=== PATIENT | male | born 1995 | race African-American/Black ===

== ENCOUNTER → 2017-06-09 | Outpatient (CLI) | payer OTHER ==
[~2017-06-09] MED LIST: CATHETER FLUSH 10 ML SYR IV PRN; IOHEXOL 350 MG/ML 100 ML (OMNIPAQUE 350) VIAL IV ONE; NS 100 ML (IVPB) BAG IV ONE
--- NOTE | 2017-06-09 14:15 | Diagnostic Imaging Report ---
PROCEDURE: CT head with and without contrast. TECHNIQUE: Multiple contiguous axial images were obtained through the brain before and after the administration of intravenous contrast. INDICATION: Headache. COMPARISON: There are no prior studies available for comparison. FINDINGS: On the pre intravenous contrast series, there is no mass, shift of the midline, or hemorrhage to suggest an acute abnormality. Following administration of intravenous contrast, there is no abnormal enhancement to indicate a neoplastic or infectious process. The torres martinez of [place], where visualized, is unremarkable for an aneurysm, and there is no hemodynamically significant stenosis of the visualized vascular structures. The ventricles are not abnormally dilated. The bone windows show no sign of a fracture or of a destructive lesion. The orbits are symmetrical and within normal limits. The sinuses are generally clear. The maxillary sinuses do seem to be hypoplastic. There does appear to be a tooth within the left maxilla extending in close proximity to the floor of the left maxillary antrum. IMPRESSION: 1. There is no evidence for an acute intracranial abnormality. There is no sign of a mass lesion either. 2. The torres martinez of [place], where visualized, is unremarkable for aneurysm formation. 3. There does appear to be a tooth embedded in the maxilla and extending in close proximity to the floor of the left maxillary antrum. 4. These results were discussed with Dr. Cobb. Dictated by: Dictated on workstation # [id number]
== END ==
LOC: RAD 12:09
PROVIDERS: ATTEND Internal Medicine
DX: R51 Headache (principal); K08.9 Disorder of teeth and supporting structures, unspecified
CPT/HCPCS: 70470